=== PATIENT | female | born 1955 | race Caucasian/White ===

== ENCOUNTER 2025-06-10 09:23 | Observation (INO) | payer OTHER, MEDICAID ==
[2025-06-10] VITALS (7 sets, daily range): BP systolic 148; BP diastolic 86; PULSE 88–104; RESP 18–24; TEMP 98; O2SAT 94–96
[~2025-06-10] VITALS: Ht 157.5 cm; Wt 41.5 kg
[~2025-06-10 09:23] MED LIST: ALBUHFA IH; FLUT1BLS3; LEVO-70 PO; NABU-141 PO; PRED20TA3 PO
--- NOTE | 2025-06-10 09:53 | ERN ---
General Chief Complaint: Shortness of Breath Stated Complaint: SHORTNESS OF BREATH Time Seen by MD: 09:25 History of Present Illness Initial Comments 69-year-old female, history of COPD, presents for difficulty breathing and sputum production over the last few days. She reports increasing shortness of breath. She has been taking her inhaler at home. She reports that she was prescribed oxygen in the past but was unable to use her oxygen at home for some unknown reason. EMS found the patient to be saturating at 85% on room air. They placed her on 3 L of oxygen. She is currently wheezing mild tachypnea. No fevers. No chest pain Allergies: Coded Allergies: No Known Allergies (Unverified Allergy, Unknown, 05/03/24) Home Meds Active Scripts Prednisone (Prednisone) 20 Mg Tablet, 40 MG PO DAILY for 3 Days, #3 TAB Prov:[facility] 05/06/24 Levofloxacin (Levofloxacin) 500 Mg Tablet, 500 MG PO DAILY for 4 Days, #4 TAB Prov:[facility] 05/06/24 Reported Medications Nabumetone (Nabumetone) 500 Mg Tablet, 1 TAB PO BID for 30 Days, #60 TAB 0 Refills 05/05/24 Albuterol Sulfate (Ventolin Hfa/Proventil Hfa/Proair Hfa) 90 Mcg Puff, 1 PUFF IH Q4HPRN PRN for SHORTNESS OF BREATH 05/04/24 Fluticasone/Umeclidin/Vilanter (Trelegy Ellipta 100-62.5-25) 100-62.5 Blst.w.dev, 1 PUFF DAILY 05/04/24 Past Medical History Past Medical History: COPD, Hepatitis Medical History Other: EMPHYSEMA, BACK PAIN Past Surgical History: ROS Dictation CONSTITUTIONAL: No chills, no fever, no weakness, no diaphoresis, no malaise. HEAD/FACE: No signs of trauma. EENT: No eye pain, no blurred vision, no tearing, no double vision, no ear pain, no ear discharge, no nose pain, no nasal congestion, no throat pain, no throat swelling, no mouth pain. RESPIRATORY: Dyspnea, wheezing CARDIOVASCULAR: No chest pain, no edema, no palpitations, no syncope. GASTROINTESTINAL/ABDOMINAL: No abdominal pain, no constipation, no diarrhea, no nausea, no vomiting. GENITOURINARY: No abnormal discharge, no dysuria, no frequent urination, no hematuria. No complaints of pain in the genitals. MUSCULOSKELETAL: No back pain, no gout, no joint pain, no joint swelling, no muscle pain, no muscle stiffness, no neck pain. INTEGUMENTARY: No change in color, no change in hair/nails, no dryness, no lesion, no lumps, no rash. NEUROLOGICAL/PSYCH: No anxiety, not depressed, no emotional problem, no headache, no numbness, no pre-existing deficit, no history of seizures, no tremors, no weakness. HEMATOLOGIC/LYMPHATIC: Not anemic, no history of blood clots, no apparent b leeding, no bruising, glands not swollen. All Systems Negative, Except as Noted. Physical Exam Physical Exam Dictation VITAL SIGNS: Reviewed. GENERAL APPEARANCE: Alert, oriented x3, moderate respiratory distress HEAD AND FACE: Non-traumatic. EYES: PERRL, pink conjunctivas, eyelid no trauma, anterior chamber clear. EARS: Pinnas intact and no signs of trauma or erythema. Ear canals clear and no discharge. TMs no erythema. NOSE: No discharge, no bleeding. OROPHARYNX: Mouth normal, teeth no caries, tongue pink. Pharynx clear, no erythema. Tonsils no exudates, no abscesses noted. Mucous membrane moist. NECK: Supple, non-tender, no thyromegaly, no masses, no JVD, no bruits. BREAST: Deferred. CHEST: No tenderness, no crepitus, no paradoxical movement, no retractions. LUNGS: Prolonged expiratory phase with wheezing all lobes accessory muscle use HEART: Regular rate, regular rhythm, no murmur, no gallops. VASCULAR: No peripheral edema. ABDOMEN: Soft, positive bowel sounds, nondistended, no guarding, nontender, no rebound, no masses no hepatomegaly, no splenomegaly, no Sánchez's sign, no he rnias. RECTAL: Deferred. GENITAL: Deferred. NEUROLOGICAL: Normal speech, gross motor function intact, gross sensory functio n intact. MUSCULOSKELETAL: Neck nontender, full range of motion, back nontender, full range of motion. EXTREMITIES: Nontender, full range of motion. SKIN: Color pink, dry, no turgor, no rash, no lacerations, no abrasions, no contusions. LYMPHATICS: Deferred. Results Laboratory and Microbiology Lab and Micro Result Laboratory Tests Test 06/10/25 09:47 06/10/25 09:54 White Blood Count 4.6 K/uL (4.8-10.8) L Red Blood Count 5.13 MIL/uL (4.00-5.50) Hemoglobin 15.0 g/dL (12.0-16.0) Hematocrit 46.0 % (36-48) Mean Corpuscular Volume 89.7 fL (79-99) Mean Corpuscular Hemoglobin 29.2 pg (27.0-33.0) Mean Corpuscular Hemoglobin Concent 32.6 g/dL (32.0-36.0) Red Cell Distribution Width 13.2 % (11.0-15.5) Platelet Count 210 K/uL (130-400) Mean Platelet Volume 9.9 fL (7.5-10.5) Immature Granulocyte % (Auto) 0.2 % (0-1) Neutrophils (%) (Auto) 75.5 % (40.0-77.0) Lymphocytes (%) (Auto) 15.2 % (21.0-51.0) L Monocytes (%) (Auto) 7.8 % (3.0-13.0) Eosinophils (%) (Auto) 0.4 % (0.0-8.0) Basophils (%) (Auto) 0.9 % (0.0-5.0) Neutrophils # (Auto) 3.5 K/uL (1.8-7.7) Lymphocytes # (Auto) 0.7 K/uL (1.0-4.8) L Monocytes # (Auto) 0.4 K/uL (0.1-1.0) Eosinophils # (Auto) 0.02 K/uL (0.00-0.70) Basophils # (Auto) 0.04 K/uL (0.00-0.20) Absolute Immature Granulocyte (auto 0.01 K/uL (0-1) Nucleated Red Blood Cells 0.0 % (0.0-0.19) Sodium Level 135 mmol/L (136-145) L Potassium Level 3.3 mmol/L (3.5-5.1) L Chloride Level 101 mmol/L (101-111) Carbon Dioxide Level 29 mmol/L (21-32) Blood Urea Nitrogen 14 mg/dL (7-18) Creatinine 0.8 mg/dL (0.5-1.0) Glomerular Filtration Rate Calc 79 mL/min (>90) Random Glucose 128 mg/dL (70-105) H Total Calcium 8.4 mg/dL (8.5-10.1) L Total Creatine Kinase 77 U/L (21-232) Troponin I High Sensitivity 11.0 ng/L (4-50) Blood Gas Specimen Type Arterial Arterial Blood pH 7.388 (7.350-7.450) Arterial Blood Partial Pressure CO2 42 mmHg (32-45) Arterial Blood Partial Pressure O2 55.7 mmHg (83.0-108.0) L Arterial Blood HCO3 24.8 mmol/L (21.0-28.0) Arterial Blood Oxygen Saturation 89.7 % (94.0-98.0) L Arterial Blood Base Excess -0.3 mmol/L (-2.0-3.0) Hemoglobin (Blood Gas) 15.6 g/dL (12.0-16.0) Sodium (Blood Gas) 136 MMOL/L (136-145) Bedside Potassium (Blood Gas) 3.5 MMOL/L (3.4-4.5) Bedside Chloride (Blood Gas) 99 MMOL/L (98-107) Bedside Glucose (Blood Gas) 128 MG/DL (65-95) H Bedside Ionized Calcium (Blood Gas) 1.15 MMOL/L (1.15-1.33) Bedside Lactic Acid (Blood Gas) 1.03 MMOL/L (0.36-0.75) H Blood Gas Temperature 37.0 CELSIUS (35.5-37.0) Blood Gas Vent Mode ROOM AIR (ROOM AIR) FiO2 21.0 % Blood Gas Specimen Comment [facility] CC: Dyspnea, wheezing Historian: Patient Comorbidities: Advanced COPD Limitations by social determinants of health: None Differential diagnosis: COPD exacerbation, pneumonia, viral URI, other EMS placed the patient on 3 L of oxygen. Patient was hypoxic prior to arrival 85% on room air. Patient in his having a moderate asthma exacerbation/COPD exacerbation based on clinical presentation. Started on duo nebs, IV steroids, IV azithromycin due to the increased sputum production. EKG: Sinus tachycardia rate of 110 normal axis good R-wave progression intervals are stable no STEMI. T-wave inversion in V4 through V6. Right atrial enlargement. No STEMI. Independently interpreted by me. Labs show no leukocytosis or anemia. Chemistries show stable electrolytes, CK troponin stable. ABG shows a PaO2 of 55 on room air. Otherwise normal. Lactic acid is stable. Chest x-ray per my independent interpretation shows no focal infiltrates or cardiomegaly. Expanded lung duong consistent with COPD. No signs of ACS, pneumothorax, sepsis, significant pneumonia. Symptoms most consistent with a COPD exacerbation. Also found to be hypoxic, placed on oxygen. Patient received DuoNeb, IV Solu-Medrol, IV azithromycin here in the ER. Still tachypneic and wheezing. We will admit for acute COPD exacerbation. Hospitalist consulted. ED Course Orders Procedure Category Date Status Time Cbc With Differential LAB 06/10/25 Complete Cardiac Panel LAB 06/10/25 Complete : Chest 1vw RAD 06/10/25 Taken : 12 Lead Ekg Tracing- EKG 06/10/25 Logged Technical 09:31 Lactated Ringers PHA 06/10/25 In Process 1000ml (Lactated 10:00 Albuterol 0.083% PHA 06/10/25 Complete 2.5mg/3ml (Proventil 10:00 Methylprednisolone PHA 06/10/25 Complete Succ 125mg (Solu-Medr 10:00 Basic Metabolic Panel LAB 06/10/25 Complete 09: Azithromycin 500mg+Ns PHA 06/10/25 In Process 250ml (Azithromyci 10:00 Covid19 (Sars Antigen LAB 06/10/25 Logged Rapid) 09:31 Influenza Type A & B, LAB 06/10/25 Logged Rapid 09:31 Procalcitonin LAB 06/10/25 In Process 09:31 Arterial Blood Gas + RT 06/10/25 Transmitted 09:31 Arterial Blood Gas LAB 06/10/25 Complete Arterial + 09:54 Current Medications Medications (Trade) Dose Ordered Sig/Eyal Route PRN Reason Start Time Stop Time Status Last Admin Dose Admin Albuterol Sulfate (Proventil 0.083% 2.5mg/3ml) 2.5 mg ONCE ONCE IH 06/10/25 10:00 06/10/25 10:01 DC 06/10/25 10:09 Azithromycin 250 ml @ 250 mls/hr ONCE ONCE IVPB 06/10/25 10:00 06/10/25 10:59 06/10/25 10:08 Lactated Ringer's 1,000 ml @ 125 mls/hr ONCE ONCE IV 06/10/25 10:00 06/10/25 17:59 06/10/25 10:08 Methylprednisolone Sodium Succinate (Solu-medROL 125MG) 125 mg ONCE ONCE IVP 06/10/25 10:00 06/10/25 10:01 DC 06/10/25 10:07 Vital Signs Date Time Temp Pulse Resp B/P (MAP) Pulse Ox O2 Delivery O2 Flow Rate FiO2 06/10/25 10:00 98.6 76 22 141/97 96 Nasal Cannula* 2 28 06/10/25 09:54 98 18 06/10/25 09:25 98.6 94 22 121/83 92 Nasal Cannula DX & DISP Disposition: Inpatient Departure Impression: Primary Impression: Acute exacerbation of chronic obstructive pulmonary disease (COPD) Additional Impression: Acute respiratory failure with hypoxemia Critical Time: 30 minutes (Critical Care Procedure NoteAuthorized and Performed by: meTotal critical care time: Approximately 36 minutesDue to a high probability of clinically significant, life threatening deterioration, the patient required my highest level of preparedness to intervene emergently and I personally spent this critical care time directly and personally managing the patient. This critical care time included obtaining a history; examining the patient; pulse oximetry; ordering and review of studies; arranging urgent treatment with development of a management plan; evaluation of patient's response to treatment; frequent reassessment; and, discussions with other providers.This critical care time was performed to assess and manage the high probability of imminent, life-threatening deterioration that could result in multi-organ failure. It was exclusive of separately billable procedures and treating other patients and teaching time.Please see MDM section and the rest of the note for further information on patient assessment and treatment.) Condition: Stable Referrals: SANDY CAMPOVERDE (PCP) TORREY HOUSTON DO Jun 10, 2025 09:53
[2025-06-10 09:56] LABS: ABG BASE EXCESS -0.3 mmol/L (-2.0-3.0); ABG HCO3 24.8 mmol/L (21.0-28.0); ABG OXYGEN SATURATION 89.7 % (94.0-98.0); ABG PCO2 42 mmHg (32-45); ABG PH 7.388 (7.350-7.450); CARBON MONOXIDE 2.7 % (0.5-1.5); PO2, ARTERIAL BG 55.7 mmHg (83.0-108.0); TEMPERATURE, CELSIUS BG 37.0 CELSIUS (35.5-37.0); VENT MODE, BG ROOM AIR (ROOM AIR)
[2025-06-10 09:58] LABS: IMMATURE GRANULOCYTE ABSOLUTE 0.01 K/uL (0-1); NUCLEATED RED BLOOD CELLS 0.0 % (0.0-0.19); PLATELET COUNT (AUTO) 210 K/uL (130-400); RED BLOOD CELL COUNT(AUTO) 5.13 MIL/uL (4.00-5.50); RED CELL DISTRIBUTION WIDTH 13.2 % (11.0-15.5); WHITE BLOOD COUNT (AUTO) 4.6 K/uL (4.8-10.8)
[2025-06-10] MEDS: LACTATED RINGERS 1000ML 1,000 ML IV ONE (10:08)
[2025-06-10] MEDS: AZITHROMYCIN 500MG+NS 250ML 250 ML IVPB ONE (10:08)
[2025-06-10] MEDS: ALBUTEROL 0.083% 2.5 MG/3 ML INH IH ONE (10:09)
[2025-06-10 10:14] LABS: CREATININE 0.8 mg/dL (0.5-1.0); GLOMERULAR FILTR. RATE CALC 79.0 mL/min (>90); GLUCOSE,RANDOM 128.0 mg/dL (70-105); SODIUM SERUM 135.0 mmol/L (136-145); UREA NITROGEN, BLOOD 14.0 mg/dL (7-18)
[2025-06-10 10:22] LABS: CREATINE KINASE, TOTAL 77.0 U/L (21-232)
--- NOTE | 2025-06-10 10:29 | HMCIMG ---
CHEST 1VW REASON: Dyspnea/SOB COMPARISON: Prior study from 05/03/2024 is available. FINDINGS: Single view of the chest was obtained. Lungs are clear. The lungs are hyperaerated flattening of both hemidiaphragms suggesting of chronic obstructive pulmonary disease. The cardiac silhouette has transverse lie secondary to COPD.. There is no pulmonary vascular congestion. Mediastinum and bony thorax appear unremarkable. IMPRESSION: 1. Chronic obstructive pulmonary disease 2. No evidence of airspace consolidation or pulmonary venous congestion and unchanged from prior study..
[2025-06-10 10:53] LABS: COVID19 (SARS ANTIGEN RAPID) PRESUMPTIVE NEGATIVE (NEGATIVE); INFLUENZA TYPE A Negative For Type A (NEGATIVE); INFLUENZA TYPE B Negative For Type B (NEGATIVE)
--- NOTE | 2025-06-10 10:57 | HP ---
[facility] HISTORY AND PHYSICAL Date of Service: Jun 10, 2025 Time of Service: 10:57 HISTORY OF PRESENT ILLNESS: 69-year-old female with past medical history of COPD, history of smoking who presented to the hospital secondary to cough, shortness of breath. Patient states for the past few dose she has noted that she has been having productive cough with spine whitish sputum. She also has been feeling short of breath more than her baseline. She denies any fever, chills, chest pain, shortness of breath, abdominal pain, nausea, vomiting. She has been followed by pulmonology as outpatient and was recently started on home oxygen. She states she was unsure on how to use oxygen at home. She uses albuterol nebulizer and trilogy at home. She denied any falls, syncopal episode. Denied any sick contacts at home. She is currently smokes around half a pack a day which she states she is slowly cutting down on. Labs were notable for white count of 4.6, hemoglobin was 15.0, platelet count was 210 K, sodium was 135, potassium was 3.3, creatinine was 0.8 on Chest x-ray showed changes of COPD, no infiltrates were noted. REVIEW OF SYSTEMS CONSTITUTIONAL: Denies fevers, chills, or night sweats. No unintentional weight loss reported. NEUROLOGICAL: Denies headache, amaurosis fugax, motor weakness, sensory deficit, vertigo/spinning sensation, gait abnormalities, or tremors. ENT: No hearing loss, otalgia, otorrhea, rhinitis, rhinorrhea, hoarseness, or sore throat. CARDIOVASCULAR: Denies any exertional angina, dyspnea on exertion, orthopnea, paroxysmal nocturnal dyspnea, palpitations, life-threatening arrhythmias, claudication. PULMONARY: Cough, shortness of breath, sputum production GASTROINTESTINAL: Denies any type of dysphagia to either liquids or solids. Denies nausea, vomiting, pyrosis, early satiety, abdominal pain, diarrhea, constipation, or changes in stool consistency or caliber. Denies coffee-ground emesis, hematemesis, hematochezia, or melanotic stools. GENITOURINARY: Denies frequency, urgency, nocturia, hematuria or incontinence (Storage/Irritative symptoms.) Low urinary stream, straining to void, urinary intermittency or hesitancy, splitting of the voiding stream, terminal dribbling. ENDOCRINOLOGIC: Denies polyuria, polydipsia, polyphagia or heat/cold intolerances. HEMATOLOGIC: Denies thrombophilia/previous clots, or coagulopathy/bleeding disorders. ONCOLOGIC: Denies personal history of malignancy. DERMATOLOGIC: Denies rashes or pruritus. PSYCHIATRIC: Denies any suicidal or homicidal ideation. Denies hallucinations. PAST MEDICAL HISTORY: History of COPD PAST SURGICAL HISTORY: History of PAST SOCIAL HISTORY: Denied any alcohol use. She currently smokes half a pack a day for more than 30 years. Denied any drug use FAMILY HISTORY: Denied any pertinent family history Coded Allergies: No Known Allergies (Unverified Allergy, Unknown, 05/03/24) PHYSICAL EXAM GENERAL APPEARANCE: The patient is awake, alert, and oriented, in no acute cardiopulmonary distress. Patient appears cachectic NEUROLOGICAL: Cranial nerves II-XII grossly intact. Motor is 5/5 in bilateral upper and lower extremities proximal to distal. No sensory deficits. HEENT: Face is symmetric. Pupils are equal and reactive. Extraocular movements are intact. NECK: Supple. No JVD. No thyromegaly. No submental, submandibular, pre- /postauricular, occipital or supraclavicular lymphadenopathy. CHEST: Normal chest expansion. No Telemetry. LUNGS: Decreased breath sounds bilaterally with mild expiratory wheezing CARDIOVASCULAR: Regular. S1 and S2 normal. No appreciable rubs, murmurs or gallops. ABDOMEN: Soft, nontender, and nondistended. There is no rebound, voluntary guarding, or rigidity. : Deferred. No Cox. EXTREMITIES: Non-edematous and not cyanotic. No clubbing. Good capillary refill. SKIN: No skin breakdown. Vital Sign (Last 24 Hours) 06/10/25 10:00 Temp 98.6 Pulse 76 Resp 22 B/P (MAP) 141/97 Pulse Ox 96 O2 Delivery Nasal Cannula* O2 Flow Rate 2 FiO2 28 LABS: Laboratory: Test 06/10/25 09:54 06/10/25 09:53 06/10/25 09:47 Range/Units Blood Gas Specimen Type Arterial Arterial Blood pH 7.388 7.350-7.450 Arterial Blood Partial Pressure CO2 42 32-45 mmHg Arterial Blood Partial Pressure O2 55.7 L 83.0-108.0 mmHg Arterial Blood HCO3 24.8 21.0-28.0 mmol/L Arterial Blood Oxygen Saturation 89.7 L 94.0-98.0 % Arterial Blood Base Excess -0.3 -2.0-3.0 mmol/L Hemoglobin (Blood Gas) 15.6 12.0-16.0 g/dL Sodium (Blood Gas) 136 136-145 MMOL/L Bedside Potassium (Blood Gas) 3.5 3.4-4.5 MMOL/L Bedside Chloride (Blood Gas) 99 98-107 MMOL/L Bedside Glucose (Blood Gas) 128 H 65-95 MG/DL Bedside Ionized Calcium (Blood Gas) 1.15 1.15-1.33 MMOL/L Bedside Lactic Acid (Blood Gas) 1.03 H 0.36-0.75 MMOL/L Blood Gas Temperature 37.0 35.5-37.0 CELSIUS Blood Gas Vent Mode ROOM AIR ROOM AIR FiO2 21.0 % Blood Gas Specimen Comment [facility] Influenza Type A Antigen Negative For Type A NEGATIVE Influenza Type B Antigen Negative For Type B NEGATIVE SARS-CoV-2 Antigen (Rapid) PRESUMPTIVE NEGATIVE NEGATIVE White Blood Count 4.6 L 4.8-10.8 K/uL Red Blood Count 5.13 4.00-5.50 MIL/uL Hemoglobin 15.0 12.0-16.0 g/dL Hematocrit 46.0 36-48 % Mean Corpuscular Volume 89.7 79-99 fL Mean Corpuscular Hemoglobin 29.2 27.0-33.0 pg Mean Corpuscular Hemoglobin Concent 32.6 32.0-36.0 g/dL Red Cell Distribution Width 13.2 11.0-15.5 % Platelet Count 210 130-400 K/uL Mean Platelet Volume 9.9 7.5-10.5 fL Immature Granulocyte % (Auto) 0.2 0-1 % Neutrophils (%) (Auto) 75.5 40.0-77.0 % Lymphocytes (%) (Auto) 15.2 L 21.0-51.0 % Monocytes (%) (Auto) 7.8 3.0-13.0 % Eosinophils (%) (Auto) 0.4 0.0-8.0 % Basophils (%) (Auto) 0.9 0.0-5.0 % Neutrophils # (Auto) 3.5 1.8-7.7 K/uL Lymphocytes # (Auto) 0.7 L 1.0-4.8 K/uL Monocytes # (Auto) 0.4 0.1-1.0 K/uL Eosinophils # (Auto) 0.02 0.00-0.70 K/uL Basophils # (Auto) 0.04 0.00-0.20 K/uL Absolute Immature Granulocyte (auto 0.01 0-1 K/uL Nucleated Red Blood Cells 0.0 0.0-0.19 % Sodium Level 135 L 136-145 mmol/L Potassium Level 3.3 L 3.5-5.1 mmol/L Chloride Level 101 101-111 mmol/L Carbon Dioxide Level 29 21-32 mmol/L Blood Urea Nitrogen 14 7-18 mg/dL Creatinine 0.8 0.5-1.0 mg/dL Glomerular Filtration Rate Calc 79 >90 mL/min Random Glucose 128 H 70-105 mg/dL Total Calcium 8.4 L 8.5-10.1 mg/dL Total Creatine Kinase 77 21-232 U/L Troponin I High Sensitivity 11.0 4-50 ng/L Procalcitonin < 0.05 L 0.05-0.5 ng/mL DIAGNOSTICS / RADIOLOGY: X-ray shows COPD changes ASSESSMENT: Acute COPD exacerbation POA Acute on chronic hypoxic respiratory failure secondary to COPD exacerbation Severe protein calorie malnutrition with low BMI Tobacco abuse PLAN: - admit to med surge with telemetry -in reference to COPD exacerbation. Patient will be started on Solu-Medrol 60 mg q.8 hours and DuoNebs. We will start patient on budesonide. Continue patient on azithromycin. We will request pulmonology consultation -patient was recommended to quit smoking. Patient understood plan of care -obtain nutrition consult -check TSH, A1c -further orders per hospitalization course. Advanced Care Planning Which of the following were discussed: Hospice care: Yes __ No _x_ Therapeutic options: Yes __ No __ Advance directives: Yes __ No __ Other discussions: Discussed with who?: patient (Patient, family or surrogates) Voluntary nature of this service was explained to the patient? Yes _x_ No __ Amount of time spent: 25 minutes MARIAELENA Parrish MD, MD Jun 10, 2025 10:57
[2025-06-10] MEDS: 0.9%NACL 1000ML 1,000 ML IV SCH (11:15)
--- NOTE | 2025-06-10 11:15 | NUR ---
BENCHMARK FOR PULMONOLOGY CONSULT AT BEDSIDE FOR EVALUATION.
--- NOTE | 2025-06-10 11:18 | EKG ---
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
[2025-06-10] MEDS ORDERED: MAGNESIUM 2GM PREMIX 50ML 50 ML IV PRN (11:30)
[2025-06-10 12:39] LABS: SARS-CoV-2, RNA, NAAT NEGATIVE SARS CoV-2 (NEGATIVE)
[2025-06-10] MEDS: guaiFENesin-DM 200/20MG 10ML PO PRN (13:12)
--- NOTE | 2025-06-10 13:48 | CONS ---
[facility] CONSULTATION NOTE Date Patient Seen: Jun 10, 2025 Time of Visit: 13:48 Supervising Physician: Dr. Boles Reason for Consultation: COPD Exacerbation PROBLEM LIST: Acute COPD exacerbation POA Acute on chronic hypoxic respiratory failure. Wells score 1.5 low risk for PE Severe protein calorie malnutrition BMI 17.4 Tobacco abuse HPI: Patient is a 69-year-old female with a past medical history significant for Chronic obstructive pulmonary disease who presents today with her Chronic obstructive pulmonary disease on exacerbation. Patient has home oxygen uses 2 L nasal cannula, she is currently on 3 L at the time of my visit. Patient denies any recent illnesses fevers nausea vomiting or chills. Patient states she has had her Chronic obstructive pulmonary disease diagnosis for several years and only recently received her home oxygen. Patient's lab work is unremarkable, ABG only positive for hypoxia at this time. She has been started on Solu-Medrol 60 mg q.8 hours IV push, as well as doxycycline, nebulizer treatments, nicotine patch. Patient endorses smoking approximately half a pack a day, states that she has been smoking for many years, was unwilling to discuss cessation, states that she is slowly tapering her smoking habits. Patient uses trilogy and albuterol inhalers at home. She endorses a cough at this time, no phlegm produc tion. Recommend to continue on the current treatment plan, we will follow along closely. Plan Continue supplemental O2, patient's home baseline is 2 L Continue Solu-Medrol 60 mg q.8 hours for now Continue doxycycline Continue nebulizer treatments Nicotine patch Cough suppression Morning ABG PAST MEDICAL HX: see above PAST SURGICAL HX: noncontributory SOCIAL HISTORY: No tobacco, ETOH, or illicit drug use Coded Allergies: No Known Allergies (Unverified Allergy, Unknown, 05/03/24) REVIEW OF SYSTEMS: 12 point ROS reviewed with patient. Pertinent positives mentioned above. Otherwise negative. PHYSICAL EXAM: GENERAL: alert, weak, awake oriented x 3 HEENT: EOMI, Sclera non icteric, moist mucosa NECK: Supple, no JVD, trachea midline LUNGS: Clear breath sounds bilaterally. No wheezes HEART: Regular rate and rhythm. Normal S1 and S2, without murmurs ABD: Abdomen soft, nontender. Bowel sounds present EXT: No clubbing cyanosis or edema NEURO: Alert and oriented to person, follows commands Vital Signs (last 8hr) Date Time Temp Pulse Resp B/P (MAP) Pulse Ox O2 Delivery O2 Flow Rate FiO2 06/10/25 12:47 98.6 108 18 112/67 92 Nasal Cannula* 2 28 06/10/25 12:15 104 18 06/10/25 12:14 104 18 N/Cannula Low lpm 2.0 28 06/10/25 10:00 98.6 76 22 141/97 96 Nasal Cannula* 2 28 06/10/25 09:54 98 18 06/10/25 09:25 98.6 94 22 121/83 92 Nasal Cannula LABS: Hematology Labs: Test 06/10/25 09:47 Range/Units White Blood Count 4.6 L 4.8-10.8 K/uL Red Blood Count 5.13 4.00-5.50 MIL/uL Hemoglobin 15.0 12.0-16.0 g/dL Hematocrit 46.0 36-48 % Mean Corpuscular Volume 89.7 79-99 fL Mean Corpuscular Hemoglobin 29.2 27.0-33.0 pg Mean Corpuscular Hemoglobin Concent 32.6 32.0-36.0 g/dL Red Cell Distribution Width 13.2 11.0-15.5 % Platelet Count 210 130-400 K/uL Mean Platelet Volume 9.9 7.5-10.5 fL Immature Granulocyte % (Auto) 0.2 0-1 % Neutrophils (%) (Auto) 75.5 40.0-77.0 % Lymphocytes (%) (Auto) 15.2 L 21.0-51.0 % Monocytes (%) (Auto) 7.8 3.0-13.0 % Eosinophils (%) (Auto) 0.4 0.0-8.0 % Basophils (%) (Auto) 0.9 0.0-5.0 % Neutrophils # (Auto) 3.5 1.8-7.7 K/uL Lymphocytes # (Auto) 0.7 L 1.0-4.8 K/uL Monocytes # (Auto) 0.4 0.1-1.0 K/uL Eosinophils # (Auto) 0.02 0.00-0.70 K/uL Basophils # (Auto) 0.04 0.00-0.20 K/uL Absolute Immature Granulocyte (auto 0.01 0-1 K/uL Nucleated Red Blood Cells 0.0 0.0-0.19 % Chemistry Labs: Test 06/10/25 09:47 Range/Units Sodium Level 135 L 136-145 mmol/L Potassium Level 3.3 L 3.5-5.1 mmol/L Chloride Level 101 101-111 mmol/L Carbon Dioxide Level 29 21-32 mmol/L Blood Urea Nitrogen 14 7-18 mg/dL Creatinine 0.8 0.5-1.0 mg/dL Glomerular Filtration Rate Calc 79 >90 mL/min Random Glucose 128 H 70-105 mg/dL Hemoglobin A1c 5.5 4.0-6.0 % Estimated Average Glucose (eAG) 111 70-126 mg/dL Total Calcium 8.4 L 8.5-10.1 mg/dL Total Creatine Kinase 77 21-232 U/L Troponin I High Sensitivity 11.0 4-50 ng/L Procalcitonin < 0.05 L 0.05-0.5 ng/mL Thyroid Stimulating Hormone (TSH) 1.69 0.36-3.74 uIU/mL DIAGNOSTICS / RADIOLOGY RESULTS: [ ] PLAN NEURO: Minimize central acting medications as possible. Maintain fall precautions, adequate lighting during the day PULMONARY: Supplemental 02 as needed. Maintain aspiration precautions at all times CARDIOVASCULAR: Follow hemodynamics. Vital signs per facility protocol GI & NUTRITION: Continue with nutritional support. Continue stool softeners and laxatives as needed. KIDNEYS & ELECTROLYTES: Strict monitoring of intake, output and overall fluid balance. Avoid nephrotoxic medications to the extent possible. Medications to be dosed according to renal function. Monitor electrolytes and replace as needed ENDOCRINE: Maintain blood glucose between 100-180 at all times. Hypoglycemia protocol in place INFECTIOUS DISEASE: Trend temperature, WBC and procalcitonin level Follow cultures, deescalate antibiotics as soon as possible. Panculture if new onset fever ONCOLOGY/HEMATOLOGY/COAGULATION: Monitor for s/s of bleeding Monitor hemoglobin, coagulation studies as needed SKIN: Pressure ulcer prevention per facility protocol Specialty mattress ORTHO/REHAB: Continue PT/OT Prophylaxis: Continue GI and DVT prophylaxis Code Status: Full Resuscitation Disposition: TBD Other: Total patient care time exceeds 35 minutes excluding all procedures. DEJON MCCOLLUM PAC Jun 10, 2025 13:48
[2025-06-10] MEDS: Solu-medROL 40MG VIAL IVP SCH (14:41)
[2025-06-10] MEDS: SODIUM CHLORIDE 3% FOR INHALATION 4 ML/AMP VIAL.NEB IH ONE (18:01)
[2025-06-10] MEDS: PoTASSium chloRIDE 20MEQ ER 20 MEQ ERTAB PO PRN (18:09)
[2025-06-10] MEDS: BUDESONIDE 0.25 MG/2 ML INH IH SCH (19:11)
[2025-06-10] MEDS: FAMOTIDINE 20MG VIAL IV SCH (21:23)
[2025-06-10] MEDS: DOXYCYCLINE 100MG+NS 250ML 250 ML IV SCH (21:23)
[2025-06-10] MEDS: PoTASSium chl 10% ELIXIR 20MEQ 20 MEQ/15 ML UDCUP PO PRN (21:57)
[2025-06-10] MEDS ORDERED: DOXY100T21 PO (23:33)
[2025-06-11] VITALS (14 sets, daily range): BP systolic 112–166; BP diastolic 66–95; PULSE 76–108; RESP 17–24; TEMP 97.8–98.6; O2SAT 97–98
[2025-06-11 03:26] LABS: ABG BASE EXCESS -0.9 mmol/L (-2.0-3.0); ABG HCO3 24.6 mmol/L (21.0-28.0); ABG OXYGEN SATURATION 95.1 % (94.0-98.0); ABG PCO2 44 mmHg (32-45); ABG PH 7.369 (7.350-7.450); DEVICE COMMENT RR RN; PO2, ARTERIAL BG 77.5 mmHg (83.0-108.0); TEMPERATURE, CELSIUS BG 37.0 CELSIUS (35.5-37.0); VENT MODE, BG 2LNC (ROOM AIR)
[2025-06-11] MEDS: ENOXAPARIN SODIUM 40 MG/0.4 ML SYRINGE SQ SCH (08:59)
[2025-06-11] MEDS: NICOTINE 14 MG/ 24 HR PATCH TD SCH (08:59)
[2025-06-11 09:24] LABS: IMMATURE GRANULOCYTE ABSOLUTE 0.04 K/uL (0-1); NUCLEATED RED BLOOD CELLS 0.0 % (0.0-0.19); PLATELET COUNT (AUTO) 214 K/uL (130-400); RED BLOOD CELL COUNT(AUTO) 4.53 MIL/uL (4.00-5.50); RED CELL DISTRIBUTION WIDTH 13.2 % (11.0-15.5); WHITE BLOOD COUNT (AUTO) 10.8 K/uL (4.8-10.8)
[2025-06-11 09:34] LABS: CREATININE 0.8 mg/dL (0.5-1.0); GLOMERULAR FILTR. RATE CALC 79.0 mL/min (>90); GLUCOSE,RANDOM 242.0 mg/dL (70-105); SODIUM SERUM 137.0 mmol/L (136-145); UREA NITROGEN, BLOOD 17.0 mg/dL (7-18)
[2025-06-11] MEDS ORDERED: (Albuterol Sulfate (Ventolin Hfa/Proventil Hfa/Proair Hfa) IH PRN (11:00)
[2025-06-11 12:54] LABS: AMPHET/METH SCREEN,URINE NEGATIVE (NEGATIVE); BARBITURATE SCREEN, URINE NEGATIVE (NEGATIVE); CANNABINOID SCREEN,URINE NEGATIVE (NEGATIVE); COCAINE SCREEN,URINE POSITIVE (NEGATIVE)
--- NOTE | 2025-06-11 13:04 | PN ---
[facility] PROGRESS NOTE Date of Service: Jun 11, 2025 Time of Service: 12:48 SUBJECTIVE 69-year-old female with past medical history of COPD, history of smoking who presented to the hospital secondary to cough, shortness of breath. Patient states for the past few dose she has noted that she has been having productive cough with spine whitish sputum. She also has been feeling short of breath more than her baseline. She denies any fever, chills, chest pain, shortness of breath, abdominal pain, nausea, vomiting. She has been followed by pulmonology as outpatient and was recently started on home oxygen. She states she was unsure on how to use oxygen at home. She uses albuterol nebulizer and trilogy at home. She denied any falls, syncopal episode. Denied any sick contacts at home. She is currently smokes around half a pack a day which she states she is slowly cutting down on. 06/11-Patient was seen at the bedside, stable and oriented, appears cachectic. Vitals stable on 3 L of oxygen. Labs unremarkable. Chest x-ray significant for COPD. Respiratory sputum cultures pending. Viral serology negative. Toxicology pending. We will continue on Solu-Medrol, DuoNebs, Pulmicort. On antibiotic doxycycline. Pulmonary on board. We will monitor for 24 hours. REVIEW OF SYSTEMS CONSTITUTIONAL: Denies fevers, chills, or night sweats. No unintentional weight loss reported. NEUROLOGICAL: Denies headache, amaurosis fugax, motor weakness, sensory deficit, vertigo/spinning sensation, gait abnormalities, or tremors. ENT: No hearing loss, otalgia, otorrhea, rhinitis, rhinorrhea, hoarseness, or sore throat. CARDIOVASCULAR: Denies any exertional angina, dyspnea on exertion, orthopnea, paroxysmal nocturnal dyspnea, palpitations, life-threatening arrhythmias, claudication. PULMONARY: Cough, shortness of breath, sputum production GASTROINTESTINAL: Denies any type of dysphagia to either liquids or solids. Denies nausea, vomiting, pyrosis, early satiety, abdominal pain, diarrhea, constipation, or changes in stool consistency or caliber. Denies coffee-ground emesis, hematemesis, hematochezia, or melanotic stools. GENITOURINARY: Denies frequency, urgency, nocturia, hematuria or incontinence (Storage/Irritative symptoms.) Low urinary stream, straining to void, urinary intermittency or hesitancy, splitting of the voiding stream, terminal dribbling. ENDOCRINOLOGIC: Denies polyuria, polydipsia, polyphagia or heat/cold intolerances. HEMATOLOGIC: Denies thrombophilia/previous clots, or coagulopathy/bleeding disorders. ONCOLOGIC: Denies personal history of malignancy. DERMATOLOGIC: Denies rashes or pruritus. PSYCHIATRIC: Denies any suicidal or homicidal ideation. Denies hallucinations. PHYSICAL EXAM GENERAL APPEARANCE: The patient is awake, alert, and oriented, in no acute cardiopulmonary distress. Patient appears cachectic NEUROLOGICAL: Cranial nerves II-XII grossly intact. Motor is 5/5 in bilateral upper and lower extremities proximal to distal. No sensory deficits. HEENT: Face is symmetric. Pupils are equal and reactive. Extraocular movements are intact. NECK: Supple. No JVD. No thyromegaly. No submental, submandibular, pre- /postauricular, occipital or supraclavicular lymphadenopathy. CHEST: Normal chest expansion. No Telemetry. LUNGS: Decreased breath sounds bilaterally with mild expiratory wheezing CARDIOVASCULAR: Regular. S1 and S2 normal. No appreciable rubs, murmurs or gallops. ABDOMEN: Soft, nontender, and nondistended. There is no rebound, voluntary guarding, or rigidity. : Deferred. No Cox. EXTREMITIES: Non-edematous and not cyanotic. No clubbing. Good capillary refill. SKIN: No skin breakdown. Vital Signs (last 8hr) Date Time Temp Pulse Resp B/P (MAP) Pulse Ox O2 Delivery O2 Flow Rate FiO2 06/11/25 11:41 94 18 06/11/25 10:45 97.9 83 17 135/80 95 Nasal Cannula 2.0 06/11/25 07:49 97.9 87 18 122/89 98 Nasal Cannula 2.0 06/11/25 06:56 89 18 N/Cannula Low lpm 2.0 28 06/11/25 06:54 89 18 LABS: Laboratory: Test 06/11/25 10:46 06/11/25 09:10 06/11/25 03:25 06/10/25 12:10 Range/Units Whole Blood Glucose 143 H 70-110 MG/DL White Blood Count 10.8 # 4.8-10.8 K/uL Red Blood Count 4.53 4.00-5.50 MIL/uL Hemoglobin 13.3 12.0-16.0 g/dL Hematocrit 41.1 36-48 % Mean Corpuscular Volume 90.7 79-99 fL Mean Corpuscular Hemoglobin 29.4 27.0-33.0 pg Mean Corpuscular Hemoglobin Concent 32.4 32.0-36.0 g/dL Red Cell Distribution Width 13.2 11.0-15.5 % Platelet Count 214 130-400 K/uL Mean Platelet Volume 9.8 7.5-10.5 fL Immature Granulocyte % (Auto) 0.4 0-1 % Neutrophils (%) (Auto) 92.8 H 40.0-77.0 % Lymphocytes (%) (Auto) 4.7 L 21.0-51.0 % Monocytes (%) (Auto) 2.0 L 3.0-13.0 % Eosinophils (%) (Auto) 0.0 0.0-8.0 % Basophils (%) (Auto) 0.1 0.0-5.0 % Neutrophils # (Auto) 10.0 H 1.8-7.7 K/uL Lymphocytes # (Auto) 0.5 L 1.0-4.8 K/uL Monocytes # (Auto) 0.2 0.1-1.0 K/uL Eosinophils # (Auto) 0.00 0.00-0.70 K/uL Basophils # (Auto) 0.01 0.00-0.20 K/uL Absolute Immature Granulocyte (auto 0.04 0-1 K/uL Nucleated Red Blood Cells 0.0 0.0-0.19 % White Cell Morphology Comment See comments Sodium Level 137 136-145 mmol/L Potassium Level 4.2 3.5-5.1 mmol/L Chloride Level 106 101-111 mmol/L Carbon Dioxide Level 26 21-32 mmol/L Blood Urea Nitrogen 17 7-18 mg/dL Creatinine 0.8 0.5-1.0 mg/dL Glomerular Filtration Rate Calc 79 >90 mL/min Random Glucose 242 #H 70-105 mg/dL Total Calcium 7.9 L 8.5-10.1 mg/dL Blood Gas Specimen Type Arterial Arterial Blood pH 7.369 7.350-7.450 Arterial Blood Partial Pressure CO2 44 32-45 mmHg Arterial Blood Partial Pressure O2 77.5 L 83.0-108.0 mmHg Arterial Blood HCO3 24.6 21.0-28.0 mmol/L Arterial Blood Oxygen Saturation 95.1 94.0-98.0 % Arterial Blood Base Excess -0.9 -2.0-3.0 mmol/L Blood Gas Temperature 37.0 35.5-37.0 CELSIUS Blood Gas Flow-by 2.00 0.00-15.00 L/min Blood Gas Vent Mode 2LNC ROOM AIR FiO2 28.0 % Blood Gas Specimen Comment RR RN SARS-CoV-2, RNA, NAAT NEGATIVE SARS CoV-2 NEGATIVE Test 06/10/25 09:54 06/10/25 09:53 06/10/25 09:47 Range/Units Hemoglobin (Blood Gas) 15.6 12.0-16.0 g/dL Sodium (Blood Gas) 136 136-145 MMOL/L Bedside Potassium (Blood Gas) 3.5 3.4-4.5 MMOL/L Bedside Chloride (Blood Gas) 99 98-107 MMOL/L Bedside Glucose (Blood Gas) 128 H 65-95 MG/DL Bedside Ionized Calcium (Blood Gas) 1.15 1.15-1.33 MMOL/L Bedside Lactic Acid (Blood Gas) 1.03 H 0.36-0.75 MMOL/L Influenza Type A Antigen Negative For Type A NEGATIVE Influenza Type B Antigen Negative For Type B NEGATIVE SARS-CoV-2 Antigen (Rapid) PRESUMPTIVE NEGATIVE NEGATIVE Hemoglobin A1c 5.5 4.0-6.0 % Estimated Average Glucose (eAG) 111 70-126 mg/dL Total Creatine Kinase 77 21-232 U/L Troponin I High Sensitivity 11.0 4-50 ng/L Procalcitonin < 0.05 L 0.05-0.5 ng/mL Thyroid Stimulating Hormone (TSH) 1.69 0.36-3.74 uIU/mL Current Medications Medications (Trade) Dose Ordered Sig/Eyal Route PRN Reason Start Time Stop Time Status Last Admin Dose Admin Acetaminophen (TYLenol 500MG TAB) 500 mg Q6H PRN PO MILD PAIN (1-3) 06/10/25 11:00 07/10/25 10:59 Albuterol (DUOneb) 1 UDVIAL [id number] IH 06/10/25 12:00 07/10/25 11:59 06/11/25 11:41 1 UDVIAL Budesonide (Pulmicort 0.25mg/2ml) 0.25 mg BIDRESP IH 06/10/25 18:00 07/10/25 17:59 06/11/25 06:54 0.25 MG Doxycycline Hyclate 250 ml @ 125 mls/hr BID IV 06/10/25 21:00 06/20/25 20:59 06/11/25 08:59 125 MLS/HR Enoxaparin Sodium (Lovenox) 40 mg DAILY SQ 06/11/25 09:00 07/11/25 08:59 06/11/25 08:59 40 MG Famotidine (Pepcid 20mg Vial) 20 mg Q48H IV 06/10/25 21:00 07/10/25 20:59 06/10/25 21:23 20 MG Guaifenesin/ Dextromethorphan (RobiTUSSin DM 200/20MG 10ML) 5 ml Q6H PRN PO COUGH 06/10/25 11:30 07/10/25 11:29 06/10/25 23:10 5 ML Home Med (Home Medication) (Albuterol Sulfate (Catracho... Q4HPRN PRN IH SHORTNESS OF BREATH 06/11/25 11:00 07/11/25 10:59 Home Med (Home Medication) (Fluticasone/ Umeclidin/ Vilan... DAILY IH 06/12/25 09:00 07/12/25 08:59 Magnesium Sulfate 50 ml @ 0 mls/hr PROTOCOL PRN IV hypomagnesemia 06/10/25 11:30 07/10/25 11:29 Methylprednisolone Sodium Succinate (Solu-medROL 40MG) 60 mg Q8H IVP 06/10/25 15:00 07/10/25 14:59 06/11/25 07:15 60 MG Nicotine (Nicoderm) 14 mg DAILY TD 06/11/25 09:00 07/11/25 08:59 06/11/25 08:59 14 MG Potassium Chloride 100 ml @ 100 mls/hr AD PRN IV POTASSIUM PROTOCOL 06/10/25 11:30 07/10/25 11:29 Potassium Chloride (K-Dur/Klor-Con 20meq) 20 meq AD PRN PO POTASSIUM PROTOCOL 06/10/25 11:30 07/10/25 11:29 06/10/25 18:09 20 MEQ Potassium Chloride (KCl 10% Elixir 20meq/15ml) 20 meq AD PRN PO POTASSIUM PROTOCOL 06/10/25 11:30 07/10/25 11:29 06/10/25 23:10 20 MEQ Sodium Chloride 1,000 ml @ 75 mls/hr [id number] IV 06/10/25 11:00 07/10/25 10:59 06/11/25 00:00 75 MLS/HR DIAGNOSTICS / RADIOLOGY: [ ] ASSESSMENT: Acute COPD exacerbation POA Acute on chronic hypoxic respiratory failure secondary to COPD exacerbation Severe protein calorie malnutrition with low BMI Tobacco abuse PLAN: Acute COPD exacerbation POA -On3 L of oxygen via nasal cannula -Started on Solu-Medrol 60 q.8h -Continuing on DuoNebs. -Continued on Pulmicort -continue patient on doxycyline -pulmonology on board. Acute on chronic hypoxic respiratory failure secondary to COPD exacerbation -On 3 L of oxygen via nasal cannula. -[id number] improved from 55, pCO2 42. -pulmonology on board, following their recommendations Severe protein calorie malnutrition with low BMI -nutrition consultation pending -pending on TSH, HB A1c Tobacco abuse -counseled regarding smoking cessation. -refused nicotine patch. ATTESTATION BY PHYSICIAN I have seen and examined the patient. I reviewed the documentation, medical decision making, and treatment plan as noted by the resident physician above. I agree with the findings and plan of care. DEMOND RUSS IV, MD, AISHWARYA MD Jun 11, 2025 13:04
--- NOTE | 2025-06-11 19:40 | PN ---
[facility] PROGRESS NOTE Date Patient Seen: Jun 11, 2025 Time of Visit: 19:40 Supervising Physician: Dr. Daquan Boles PROBLEM LIST: Acute COPD exacerbation POA Acute on chronic hypoxic respiratory failure. Wells score 1.5 low risk for PE Severe protein calorie malnutrition BMI 17.4 Tobacco abuse INTERVAL HISTORY: The patient was examined and seen while resting on top of bed in a high Salguero's position watching television, with family members present, accompanied by patient's bedside nurse, and nursing staff reports no adverse events impacting the patient occurring overnight. Patient is awake alert and oriented and appears in no acute distress, 2 L nasal cannula, afebrile, vital signs stable. Reviewed and discussed laboratory results, vital signs, plan of care, treatment plan and discharge if patient does not have pulmonary specialists refer patient to [facility] for outpatient clinical workup pulmonary function testing. After discussion there were no questions or concerns. Further orders per course of stay. Pulmonary consulted signing off, thank you again for the opportunity to participate in the care for this patient and if there is any concerns during this admission please reconsult us. REVIEW OF SYSTEMS: 12 point ROS reviewed with patient. Pertinent positives mentioned above. Otherwise negative. PHYSICAL EXAM: GENERAL: alert, weak, awake oriented x 3 HEENT: EOMI, Sclera non icteric, moist mucosa NECK: Supple, no JVD, trachea midline LUNGS: Clear breath sounds bilaterally. No wheezes HEART: Regular rate and rhythm. Normal S1 and S2, without murmurs ABD: Abdomen soft, nontender. Bowel sounds present EXT: No clubbing cyanosis or edema NEURO: Alert and oriented to person, follows commands Vital Signs (last 8hr) Date Time Temp Pulse Resp B/P (MAP) Pulse Ox O2 Delivery O2 Flow Rate FiO2 06/11/25 17:47 98.6 91 17 152/88 97 Nasal Cannula 2.0 06/11/25 11:41 94 18 LABS: Hematology Labs: Test 06/11/25 09:10 Range/Units White Blood Count 10.8 # 4.8-10.8 K/uL Red Blood Count 4.53 4.00-5.50 MIL/uL Hemoglobin 13.3 12.0-16.0 g/dL Hematocrit 41.1 36-48 % Mean Corpuscular Volume 90.7 79-99 fL Mean Corpuscular Hemoglobin 29.4 27.0-33.0 pg Mean Corpuscular Hemoglobin Concent 32.4 32.0-36.0 g/dL Red Cell Distribution Width 13.2 11.0-15.5 % Platelet Count 214 130-400 K/uL Mean Platelet Volume 9.8 7.5-10.5 fL Immature Granulocyte % (Auto) 0.4 0-1 % Neutrophils (%) (Auto) 92.8 H 40.0-77.0 % Lymphocytes (%) (Auto) 4.7 L 21.0-51.0 % Monocytes (%) (Auto) 2.0 L 3.0-13.0 % Eosinophils (%) (Auto) 0.0 0.0-8.0 % Basophils (%) (Auto) 0.1 0.0-5.0 % Neutrophils # (Auto) 10.0 H 1.8-7.7 K/uL Lymphocytes # (Auto) 0.5 L 1.0-4.8 K/uL Monocytes # (Auto) 0.2 0.1-1.0 K/uL Eosinophils # (Auto) 0.00 0.00-0.70 K/uL Basophils # (Auto) 0.01 0.00-0.20 K/uL Absolute Immature Granulocyte (auto 0.04 0-1 K/uL Nucleated Red Blood Cells 0.0 0.0-0.19 % White Cell Morphology Comment See comments Chemistry Labs: Test 06/11/25 16:59 06/11/25 09:10 06/10/25 09:47 Range/Units Whole Blood Glucose 94 70-110 MG/DL Sodium Level 137 136-145 mmol/L Potassium Level 4.2 3.5-5.1 mmol/L Chloride Level 106 101-111 mmol/L Carbon Dioxide Level 26 21-32 mmol/L Blood Urea Nitrogen 17 7-18 mg/dL Creatinine 0.8 0.5-1.0 mg/dL Glomerular Filtration Rate Calc 79 >90 mL/min Random Glucose 242 #H 70-105 mg/dL Total Calcium 7.9 L 8.5-10.1 mg/dL Hemoglobin A1c 5.5 4.0-6.0 % Estimated Average Glucose (eAG) 111 70-126 mg/dL Total Creatine Kinase 77 21-232 U/L Troponin I High Sensitivity 11.0 4-50 ng/L Procalcitonin < 0.05 L 0.05-0.5 ng/mL Thyroid Stimulating Hormone (TSH) 1.69 0.36-3.74 uIU/mL DIAGNOSTICS / RADIOLOGY RESULTS: [ ] RECOMMENDATIONS: TELEMETRY. CONTINUE ANTIBIOTICS DOXYCYCLINE IV Q.12 HOURS CONTINUE WITH PULMICORT Q.12 HOURS SCHEDULED BREATHING TREATMENTS Q.6 HOURS 6 MINUTE AMBULATION TEST TITRATE SOLU-MEDROL FROM T.I.D. TO B.I.D. THEN TO ORAL PREDNISONE ASPIRATION PRECAUTIONS INCENTIVE SPIROMETER WHILE PATIENT IS AWAKE AND OUT OF BED, 6-10 TIMES AN FURTHER ORDERS PER COURSE OF STAY DISPO PER PRIMARY TEAM NEURO: Minimize central acting medications as possible. Maintain fall precautions, adequate lighting during the day PULMONARY: Supplemental 02 as needed. Maintain aspiration precautions at all times CARDIOVASCULAR: Follow hemodynamics. Vital signs per facility protocol GI & NUTRITION: Continue with nutritional support. Continue stool softeners and laxatives as needed. KIDNEYS & ELECTROLYTES: Strict monitoring of intake, output and overall fluid balance. Avoid nephrotoxic medications to the extent possible. Medications to be dosed according to renal function. Monitor electrolytes and replace as needed ENDOCRINE: Maintain blood glucose between 100-180 at all times. Hypoglycemia protocol in place INFECTIOUS DISEASE: Trend temperature, WBC and procalcitonin level Follow cultures, deescalate antibiotics as soon as possible. Panculture if new onset fever ONCOLOGY/HEMATOLOGY/COAGULATION: Monitor for s/s of bleeding Monitor hemoglobin, coagulation studies as needed SKIN: Pressure ulcer prevention per facility protocol Specialty mattress ORTHO/REHAB: Continue PT/OT Prophylaxis: Continue GI and DVT prophylaxis Code Status: Full Resuscitation Disposition: TBD Other: Total patient care time exceeds 35 minutes excluding all procedures. BELEM OLIVER AGACNP Jun 11, 2025 19:40
[2025-06-12] VITALS (7 sets, daily range): BP systolic 118–156; BP diastolic 71–94; PULSE 72–97; RESP 16–22; TEMP 97.8–98.5; O2SAT 98
[2025-06-12 05:28] LABS: NUCLEATED RED BLOOD CELLS 0.0 % (0.0-0.19); PLATELET COUNT (AUTO) 219.0 K/uL (130-400); RED BLOOD CELL COUNT(AUTO) 4.18 MIL/uL (4.00-5.50); RED CELL DISTRIBUTION WIDTH 13.3 % (11.0-15.5); WHITE BLOOD COUNT (AUTO) 9.2 K/uL (4.8-10.8)
[2025-06-12 05:53] LABS: ASPARTATE AMINOTRANSFERASE 17.0 U/L (10-37); CREATININE 0.8 mg/dL (0.5-1.0); GLOMERULAR FILTR. RATE CALC 79.0 mL/min (>90); GLUCOSE,RANDOM 78.0 mg/dL (70-105); SODIUM SERUM 148.0 mmol/L (136-145); TOTAL PROTEIN, SERUM 5.6 g/dL (6.0-8.3); UREA NITROGEN, BLOOD 11.0 mg/dL (7-18)
[2025-06-12] MEDS: (Fluticasone/Umeclidin/Vilanter (Trelegy Ellipta 100-62.5- IH SCH (08:22)
[2025-06-12] MEDS ORDERED: Solu-medROL 40MG VIAL IVP SCH (13:00)
--- NOTE | 2025-06-12 13:05 | DS ---
Discharge Summary Hospital Course Summary: 69-year-old female with past medical history of COPD, history of smoking for more than 50 years, recent usage of home oxygen at 2 L presented to hospital secondary to cough, shortness of breath over the last few days when she noticed increased frequency and amount of productive cough with whitish sputum. On admission patient chest x-ray was consistent with COPD changes and was hypoxemic requiring oxygen via nasal cannula at 2 L. Initial ABG was also consistent with acute hypoxic respiratory failure. Patient was admitted for acute exacerbation of COPD and acute hypoxemic respiratory failure. Pulmonology consult was obtained who recommended IV steroids, doxycycline, and nebulization treatments with albuterol and budesonide which have markedly improved her symptoms within a day. Respiratory cultures have only shown growth of 1+ oral winston and in the light of rapid improvement in respiratory symptoms infectious etiology is less likely. Patient will be discharged home in stable condition and was advised to continue doxycycline 100 mg twice daily for 3 days and continue her inhaler treatments with albuterol and Trelegy Ellipta. Patient was instructed to wean off steroids with a Medrol Dosepak for 6 days. Patient was also counseled on smoking cessation and reported trying to cut down. Patient was instructed to follow up with PCP in 2-3 days and [facility] in 1-2 weeks after discharge for pulmonary function testing. At the time of discharge patient was hemodynamically stable, breathing at her baseline O2 at 2 L via nasal cannula. Patient was instructed to monitor for red flag symptoms like worsening shortness of breath, cough, increased sputum, fevers, chest pain, dizziness, nausea or vomiting and return to ED if needed. Patrol Guard(s): Dr. Gaines, Pulmonology Date Patient Seen: Jun 11, 2025 Time of Visit: 19:40 Supervising Physician: Dr. Daquan Boles PROBLEM LIST: Acute COPD exacerbation POA Acute on chronic hypoxic respiratory failure. Wells score 1.5 low risk for PE Severe protein calorie malnutrition BMI 17.4 Tobacco abuse INTERVAL HISTORY: The patient was examined and seen while resting on top of bed in a high Salguero's position watching television, with family members present, accompanied by patient's bedside nurse, and nursing staff reports no adverse events impacting the patient occurring overnight. Patient is awake alert and oriented and appears in no acute distress, 2 L nasal cannula, afebrile, vital signs stable. Reviewed and discussed laboratory results, vital signs, plan of care, treatment plan and discharge if patient does not have pulmonary specialists refer patient to [facility] for outpatient clinical workup pulmonary function testing. After discussion there were no questions or concerns. Further orders per course of stay. Pulmonary consulted signing off, thank you again for the opportunity to participate in the care for this patient and if there is any concerns during this admission please reconsult us. REVIEW OF SYSTEMS: 12 point ROS reviewed with patient. Pertinent positives mentioned above. Otherwise negative. PHYSICAL EXAM: GENERAL: alert, weak, awake oriented x 3 HEENT: EOMI, Sclera non icteric, moist mucosa NECK: Supple, no JVD, trachea midline LUNGS: Clear breath sounds bilaterally. No wheezes HEART: Regular rate and rhythm. Normal S1 and S2, without murmurs ABD: Abdomen soft, nontender. Bowel sounds present EXT: No clubbing cyanosis or edema NEURO: Alert and oriented to person, follows commands Vital Signs (last 8hr) Date Time Temp Pulse Resp B/P (MAP) Pulse Ox O2 Delivery O2 Flow Rate FiO2 06/11/25 17:47 98.6 91 17 152/88 97 Nasal Cannula 2.0 06/11/25 11:41 94 18 LABS: Hematology Labs: Test 06/11/25 09:10 Range/Units White Blood Count 10.8 # 4.8-10.8 K/uL Red Blood Count 4.53 4.00-5.50 MIL/uL Hemoglobin 13.3 12.0-16.0 g/dL Hematocrit 41.1 36-48 % Mean Corpuscular Volume 90.7 79-99 fL Mean Corpuscular Hemoglobin 29.4 27.0-33.0 pg Mean Corpuscular Hemoglobin Concent 32.4 32.0-36.0 g/dL Red Cell Distribution Width 13.2 11.0-15.5 % Platelet Count 214 130-400 K/uL Mean Platelet Volume 9.8 7.5-10.5 fL Immature Granulocyte % (Auto) 0.4 0-1 % Neutrophils (%) (Auto) 92.8 H 40.0-77.0 % Lymphocytes (%) (Auto) 4.7 L 21.0-51.0 % Monocytes (%) (Auto) 2.0 L 3.0-13.0 % Eosinophils (%) (Auto) 0.0 0.0-8.0 % Basophils (%) (Auto) 0.1 0.0-5.0 % Neutrophils # (Auto) 10.0 H 1.8-7.7 K/uL Lymphocytes # (Auto) 0.5 L 1.0-4.8 K/uL Monocytes # (Auto) 0.2 0.1-1.0 K/uL Eosinophils # (Auto) 0.00 0.00-0.70 K/uL Basophils # (Auto) 0.01 0.00-0.20 K/uL Absolute Immature Granulocyte (auto 0.04 0-1 K/uL Nucleated Red Blood Cells 0.0 0.0-0.19 % White Cell Morphology Comment See comments Chemistry Labs: Test 06/11/25 16:59 06/11/25 09:10 06/10/25 09:47 Range/Units Whole Blood Glucose 94 70-110 MG/DL Sodium Level 137 136-145 mmol/L Potassium Level 4.2 3.5-5.1 mmol/L Chloride Level 106 101-111 mmol/L Carbon Dioxide Level 26 21-32 mmol/L Blood Urea Nitrogen 17 7-18 mg/dL Creatinine 0.8 0.5-1.0 mg/dL Glomerular Filtration Rate Calc 79 >90 mL/min Random Glucose 242 #H 70-105 mg/dL Total Calcium 7.9 L 8.5-10.1 mg/dL Hemoglobin A1c 5.5 4.0-6.0 % Estimated Average Glucose (eAG) 111 70-126 mg/dL Total Creatine Kinase 77 21-232 U/L Troponin I High Sensitivity 11.0 4-50 ng/L Procalcitonin < 0.05 L 0.05-0.5 ng/mL Thyroid Stimulating Hormone (TSH) 1.69 0.36-3.74 uIU/mL DIAGNOSTICS / RADIOLOGY RESULTS: [ ] RECOMMENDATIONS: TELEMETRY. CONTINUE ANTIBIOTICS DOXYCYCLINE IV Q.12 HOURS CONTINUE WITH PULMICORT Q.12 HOURS SCHEDULED BREATHING TREATMENTS Q.6 HOURS 6 MINUTE AMBULATION TEST TITRATE SOLU-MEDROL FROM T.I.D. TO B.I.D. THEN TO ORAL PREDNISONE ASPIRATION PRECAUTIONS INCENTIVE SPIROMETER WHILE PATIENT IS AWAKE AND OUT OF BED, 6-10 TIMES AN FURTHER ORDERS PER COURSE OF STAY DISPO PER PRIMARY TEAM NEURO: Minimize central acting medications as possible. Maintain fall precautions, adequate lighting during the day PULMONARY: Supplemental 02 as needed. Maintain aspiration precautions at all times CARDIOVASCULAR: Follow hemodynamics. Vital signs per facility protocol GI & NUTRITION: Continue with nutritional support. Continue stool softeners and laxatives as needed. KIDNEYS & ELECTROLYTES: Strict monitoring of intake, output and overall fluid balance. Avoid nephrotoxic medications to the extent possible. Medications to be dosed according to renal function. Monitor electrolytes and replace as needed ENDOCRINE: Maintain blood glucose between 100-180 at all times. Hypoglycemia protocol in place INFECTIOUS DISEASE: Trend temperature, WBC and procalcitonin level Follow cultures, deescalate antibiotics as soon as possible. Panculture if new onset fever ONCOLOGY/HEMATOLOGY/COAGULATION: Monitor for s/s of bleeding Monitor hemoglobin, coagulation studies as needed SKIN: Pressure ulcer prevention per facility protocol Specialty mattress ORTHO/REHAB: Continue PT/OT Prophylaxis: Continue GI and DVT prophylaxis Code Status: Full Resuscitation Disposition: TBD Other: Total patient care time exceeds 35 minutes excluding all procedures. BELEM OLIVER AGACNP Jun 11, 2025 19:40 Electronically Signed by: BELEM BAEZP108/13/24 0618 Electronically Co-Signed by: DAQUAN BOLES MD06/12/25 1051 Procedure(s): PATIENT: GIOVANNI DAY MR#: [id number] : 1955 SEX: F AGE: 69 LOCATION: [facility] ORDER 9 STATUS: [facility] REPORT#: [id number] SERVICE 0 REASON: Dyspnea/SOB ORDERING PHYSICIAN: TORREY HOUSTON DO PROCEDURE: CXR1VW - CHEST 1VW CHEST 1VW REASON: Dyspnea/SOB COMPARISON: Prior study from 05/03/2024 is available. FINDINGS: Single view of the chest was obtained. Lungs are clear. The lungs are hyperaerated flattening of both hemidiaphragms suggesting of chronic obstructive pulmonary disease. The cardiac silhouette has transverse lie secondary to COPD.. There is no pulmonary vascular congestion. Mediastinum and bony thorax appear unremarkable. IMPRESSION: 1. Chronic obstructive pulmonary disease 2. No evidence of airspace consolidation or pulmonary venous congestion and unchanged from prior study.. DICTATED BY: YAW MAJOR MD DATE: 06/10/25 1026 ELECTRONICALLY SIGNED BY: YAW MAJOR MD DATE: 06/10/25 1029 Assessment/Plan: ASSESSMENT: Acute COPD exacerbation, resolved Acute on chronic hypoxic respiratory failure secondary to COPD exacerbation, resolved Home oxygen requiring baseline @ 2 L Severe protein calorie malnutrition with low BMI Chronic Tobacco abuse Discharge Instructions: ADMISSION DATE : 06/10/2025 DISCHARGE DATE: 06/12/2025 DISPOSITION : Home CONDITION : Stable DIRECTOR STRATEGY(S) : Dr. Gaines, acid operator FOLLOW UP APPOINTMENT(S) : f/u with PCP in one 2-3 days, f/u with [facility] clinic in 1 week PROCEDURES: IMAGING (S) : report attached to summary MICROBIOLOGY : report attached to summary ACTIVITY : ad trino HOME MEDICATIONS : Continued Home Medications: Active Scripts Methylprednisolone (Medrol) 4 Mg Tab.ds.pk, 1 TAB PO AD for 6 Days, #21 TAB 0 Refills 6 on day 1 then reduce by one tablet daily until gone Prov:ANNE MARIE HODGES MD 06/12/25 Doxycycline Monohydrate (Doxycycline Monohydrate) 100 Mg Tablet, 1 TAB PO BID for 3 Days, #6 TAB 0 Refills Prov:ANNE MARIE HODGES MD 06/12/25 Reported Medications Albuterol Sulfate (Ventolin Hfa/Proventil Hfa/Proair Hfa) 90 Mcg Puff, 1 PUFF IH Q4HPRN PRN for SHORTNESS OF BREATH 05/04/24 Fluticasone/Umeclidin/Vilanter (Trelegy Ellipta 100-62.5-25) 100-62.5 Blst.w.dev, 1 PUFF DAILY 05/04/24 Discontinued Reported Medications Doxycycline Monohydrate (Doxycycline Monohydrate) 100 Mg Tablet, 1 TAB PO BID for 10 Days, #20 TAB 0 Refills 06/10/25 Nabumetone (Nabumetone) 500 Mg Tablet, 1 TAB PO BID for 30 Days, #60 TAB 0 Refills 05/05/24 Discontinued Scripts Prednisone (Prednisone) 20 Mg Tablet, 40 MG PO DAILY for 3 Days, #3 TAB Prov:KASSIE ROCK 05/06/24 Levofloxacin (Levofloxacin) 500 Mg Tablet, 500 MG PO DAILY for 4 Days, #4 TAB Prov:KASSIE ROCK 05/06/24 New Medications: Doxycycline Monohydrate (Doxycycline Monohydrate) 100 Mg Tablet 1 TAB PO BID for 3 Days, #6 TAB 0 Refills Methylprednisolone (Medrol) 4 Mg Tab.ds.pk 1 TAB PO AD for 6 Days, #21 TAB 0 Refills 6 on day 1 then reduce by one tablet daily until gone Continued Medications: Albuterol Sulfate (Ventolin Hfa/Proventil Hfa/Proair Hfa) 90 Mcg Puff 1 PUFF IH Q4HPRN PRN for SHORTNESS OF BREATH Fluticasone/Umeclidin/Vilanter (Trelegy Ellipta 100-62.5-25) 100-62.5 Blst.w.dev 1 PUFF DAILY Discontinued Medications: Doxycycline Monohydrate (Doxycycline Monohydrate) 100 Mg Tablet 1 TAB PO BID for 10 Days, #20 TAB 0 Refills Time spent arranging discharge: 1-30 minutes ATTESTATION BY PHYSICIAN I have evaluated the patient chart, medical records, and spoke with appropriate staff. I reviewed the documentation, medical decision making, and treatment plan as noted by the resident provider above. I agree with the findings and plan of care. DEMOND RUSS MD, HARSHAVARDHA MD Jun 12, 2025 13:05
[2025-06-12] MEDS ORDERED: DOXY100T21 PO (13:40)
[2025-06-12] MEDS ORDERED: METH4TAB3 PO (13:40)
[2025-06-12] MEDS: Solu-medROL 40MG VIAL IVP SCH (13:41)
--- NOTE | 2025-06-12 16:25 | NUR ---
DISCHARGED PATIENT DISCHARGED HOME WITH FAMILY. PATIENT TO FOLLOW MD RECOMMENDATIONS, AND TAKE MEDICATIONS PRESCRIBED. PATIENT TO FOLLOW UP WITH PCP IN 2 - 3 DAYS AND [facility] IN 2 WEEKS.
== END 2025-06-12 15:30 | disposition home or self-care (01) ==
LOC: EDH 09:23 → UNDOADMOB 10:51 → INTOOBSV 10:51 → EDHIP 10:51 → 3DH 22:25 → EDHIP 22:25 → 3DH 06-11 13:31
PROVIDERS: ADMIT Internal Medicine; ATTEND Internal Medicine
DX: J44.1 Chronic obstructive pulmonary disease with (acute) exacerbation (principal); J96.21 Acute and chronic respiratory failure with hypoxia; E43 Unspecified severe protein-calorie malnutrition; K75.9 Inflammatory liver disease, unspecified; Z20.822 Contact with and (suspected) exposure to COVID-19; Z79.899 Other long term (current) drug therapy; Z98.890 Other specified postprocedural states; Z71.6 Tobacco abuse counseling
CPT/HCPCS: 96376 ×3; 96366 ×3; 96375 ×2; 96367; 83036; 84443; 82435; 82550; 82947; 84484; 84132; 84295; 80048 ×2; 82803 ×2; 85025 ×2; 85018; 87071; 87205; 87804 ×2; 82948 ×6; 83605; 87426; 36415 ×3; 87635; 71045; 96365; 99291; 93005; 36600 ×2; 94640; 84145; 96372 ×2; 96361; 80305; 80053; 85027; G0378 ×26; J7120; J1308; J7030; J2919 ×7; J0456; J3490 ×4; J1650 ×2; 94664